=== PATIENT | female | born 1955 | race Caucasian/White ===

== ENCOUNTER 2017-02-08 15:56 | Observation (INO) | payer OTHER ==
[2017-02-08] MEDS ORDERED: Lactated Ringers 500 ML IV SCH (16:26)
[2017-02-08] MEDS ORDERED: Albuterol 0.083% 2.5 MG/3 ML Neb Soln NEB PRN (16:26)
[2017-02-08] MEDS ORDERED: Ondansetron 4 MG/2 ML SDV IV PRN (16:26)
[2017-02-08] MEDS ORDERED: Sodium Chloride 0.9% 10 ML Syringe FLUSH PRN (16:26)
[2017-02-08] MEDS ORDERED: hydrOXYzine HCl 25 MG Tab PO PRN (16:38)
[2017-02-08] MEDS: Acetaminophen 325 MG Tab PO PRN ×2 (17:59→22:24)
[2017-02-08] MEDS: Sodium Chloride 0.9% 1,000 ML IV SCH (18:05)
[2017-02-08] MEDS: Calcium Citrate/Vitamin D3 315 MG-250 Unit Tab PO SCH (18:22)
[2017-02-08] MEDS: Albuterol 0.042% 1.25 MG/3 ML Neb Soln NEB SCH (20:45)
[2017-02-08] MEDS: Oseltamivir 75 MG Cap PO SCH (20:45)
--- NOTE | 2017-02-08 22:10 | HP ---
CHIEF COMPLAINT: A 61-year-old with chief complaint of fever, weakness, and fatigue. HISTORY OF PRESENT ILLNESS: This is a 61-year-old who has felt unwell since 02/04. 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 She even worked today, but she was still ill, they sent her home and she sort of passed even driving, woke up, was going quite fast, but did not crash. She came to the clinic. She had 102 fever, was found to have influenza B. She did not have her flu shot this year. She has a cough productive of yellow sputum and she does feel short of breath with wheezing. She has no lung disease. She is a nonsmoker. She has not been able to eat or drink much due to severe sore throat. She complains of aches all over. No bad abdominal pain, just feels real achy. No vomiting. Lab work in the clinic showed sodium mildly low at 134, otherwise her white count was normal. Chest x-ray, on my review, did not show any significant infiltrates. Flor Mauro thought there may potentially be a right lower lobe infiltrate, but on exam she had rhonchi all over. ALLERGIES: None. MEDICATIONS: List includes phentermine 37.5 once daily, Voltaren 100 mg daily, repeat as needed for arthritis flares, Prilosec 20 mg b.i.d., Vistaril 25 mg 4 times a day as needed for anxiety, multivitamin twice daily, B12 500 mcg daily, potassium daily, multivitamin b.i.d., iron tabs daily, magnesium 500 daily. PAST MEDICAL HISTORY: Includes myalgias and obesity are all that is listed. Medically, she does have a past history of anxiety. PAST MEDICAL HISTORY: Includes a gastric bypass surgery back in 2009, hysterectomy with removal of the tubes and ovaries, tonsillectomy, breast biopsy. SOCIAL HISTORY: The patient is . and she live in [place]. 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 She has 1 daughter who is with her during her visit today. FAMILY HISTORY: She has a mother who had breast cancer and ovarian cancer. Father is , he did have a heart attack, he also had diabetes. Brother has mental illness and , he committed suicide. REVIEW OF SYSTEMS: General: She has felt fever. She has felt weak, fatigued. HEENT: Sore throat. Cardiac: No chest pain. Respiratory: She has had cough, shortness of breath. Abdominal: No nausea, vomiting, diarrhea, or constipation. Musculoskeletal: She has had muscle aches. Otherwise, all systems reviewed and found to be negative unless otherwise stated. PHYSICAL EXAMINATION: Vital Signs: Today in the clinic, her weight is 152 pounds, blood pressure 94/50, temp 102.1, pulse 84, O2 saturation of 90% on room air. Normal O2 sats are 97 or 100 for her. General: She is in mild distress. She is slumped over in the chair. She appears pale and fatigued. Heart: Regular rate and rhythm. S1 and S2 without murmur. Lungs: Sounds decreased throughout with inspiratory rhonchi noted and rare expiratory wheezes in both bases. She is coughing with all deep breaths. Abdomen: Positive bowel sounds. Soft. Mildly tender. Extremities: Warm and dry. No edema. HEENT: Shows her throat to be without exudates or significant redness. Mental Status: She is alert and oriented x3. ASSESSMENT AND PLAN: 1. Influenza B with out evidence of pneumonia. Her white count is normal. We will follow her chest x-ray given her shortness of breath. 2. Dehydration and weakness due to poor intake from influenza. We will give her some IV fluids. I hope this will bring her fever down. We will also give her Tylenol. 3. History of gastric bypass. We will continue her supplements. 4. Episode of basically syncope. I think this is related to her influenza illness. It happened while driving. She has been ill for almost 5 days and was trying to work. I think she just needs some rest. We will not do any other further testing at this point for that. We also gave her Tamiflu for 5 days because she is ill enough to be in the hospital. I will order some sputum cultures in case an infiltrate does come up on her repeat x-ray after hydration. If necessary, we will start her on antibiotics. 5. Thrombocytopenia we will recheck in the AM Code level 1. DVT prophylaxis not yet indicated, as I anticipate her stay to be less than 24 hours. MKA: 02/08/2017 16:51:06 MODL: 02/08/2017 22:00:38 /[id number]
[2017-02-09] MEDS: Acetaminophen 325 MG Tab PO PRN ×2 (02:02→16:39)
[2017-02-09] MEDS: Sodium Chloride 0.9% 1,000 ML IV SCH ×3 (02:03→19:20)
[2017-02-09] MEDS: Albuterol 0.042% 1.25 MG/3 ML Neb Soln NEB SCH (07:07)
[2017-02-09 07:08] LABS: CHLORIDE,CL 105 mmol/L (98-107); SODIUM,NA 143 mmol/L (136-145)
[2017-02-09] MEDS ORDERED: Omeprazole 20 MG Cap.CR PO SCH (08:00)
[2017-02-09] MEDS: Cyanocobalamin (Vitamin B12) 250 MCG Tab PO SCH (09:22)
[2017-02-09] MEDS: Calcium Citrate/Vitamin D3 315 MG-250 Unit Tab PO SCH ×2 (09:25→18:06)
[2017-02-09] MEDS: Magnesium Oxide 400 MG Tab PO SCH (09:26)
[2017-02-09] MEDS: Oseltamivir 75 MG Cap PO SCH ×2 (09:26→19:52)
[2017-02-09] MEDS: Multivitamins with Iron/Calcium/Folic Acid/Minerals Tab PO SCH ×2 (09:26→19:52)
[2017-02-09] MEDS ORDERED: [UNRECOGNIZED DRUG - REMARK] SCH (10:30)
[2017-02-09] MEDS: Albuterol 0.083% 2.5 MG/3 ML Neb Soln NEB SCH ×3 (11:05→19:53)
[2017-02-09] MEDS ORDERED: Flu Vaccine 2016-17(36Mos+)/PF 60 MCG/0.5 ML Syringe IM ONE (12:00)
[2017-02-09] MEDS ORDERED: Pneumococcal 23-Valent Conjugate Vaccine 0.5 ML Syringe IM ONE (12:30)
--- NOTE | 2017-02-09 14:00 | PN ---
Progress Note for ROCHELLE KLINE Date: 02/09/2017 Room #: VM.204 SUBJECTIVE: This is hospital day #2 on a 61-year-old admitted with influenza B. She continues to have a cough. She continues to be short of breath, but oxygen saturations are better. She was weaned off oxygen. Her fever did break during the night. She is feeling a little lightheaded. Blood pressures are running low. She has no history of hypertension. She did get an L of bolus. Otherwise, her daughter states she has been a little bit more forgetful, not able to remember everything that she said, but not overly confused. OBJECTIVE: Vital Signs: She has had a temperature this morning is 98, pulse 64, blood pressure 102/54, respiratory rate 16, and O2 of 95% on room air. Her T-max was 102.2 at 5 p.m. yesterday. Last fever was 100.5 at 10 p.m. General: She is in no acute distress. Heart: Regular rate and rhythm. S1, S2 without murmur. Lungs: Sounds show a faint inspiratory rhonchi in both bases. No wheezing. Abdomen: Positive bowel sounds. Soft and nontender. Extremities: Warm and dry. No edema. Mental Status: She is alert and orientated x3. LABORATORY DATA: Lab work today white count continues to be normal. Hemoglobin dropped slightly down to 10.3, possibly due to some hemodilution, it was 11.8 yesterday, and platelets dropped from 95 down to 76. Complete BMP panels nominal except for mildly low calcium at 7.7 and a bicarb of 34. ASSESSMENT AND PLAN: 1. Influenza B with respiratory symptoms and persisting shortness of breath and cough. X-ray does not show pneumonia. She is off antibiotics, but we are giving her oral Tamiflu. 2. Dehydration and weakness. We will continue IV fluids. 3. History of gastric bypass. She is on supplements. 4. Mild anemia, probably hemodilutional. 5. Thrombocytopenia, new. I had no previous CBCs to compare, could be due to acute illness. We will repeat it either this afternoon or tomorrow morning to see if there is any worsening. 6. Some mild slowness I thought, likely related to her acute illness. I think this is all expected. I do not think any further testing is warranted at this point. 7. Thrombocytopenia. We will continue to monitor. PLAN: At this point, the patient will continue acute under observation cares. I anticipate she may need to stay 1 more night, but will definitely be discharged with in her 48 hour observation window. She may even improve throughout the day and go home this evening. We will just have to see how things go. DVT prophylaxis was not given as I anticipated a short stay and plus with her thrombocytopenia. I do encourage her to be up and ambulatory with nursing. We will get some orthostatic vitals today as well. MKA: 02/09/2017 12:46:22 MODL: 02/09/2017 13:15:36 /[id number]
[2017-02-09] MEDS: Omeprazole 20 MG Cap.CR PO SCH (16:41)
[2017-02-09] MEDS: guaiFENesin 600 MG Tab.ER PO SCH (19:52)
[2017-02-10] MEDS: Sodium Chloride 0.9% 1,000 ML IV SCH (03:23)
[2017-02-10] MEDS: Omeprazole 20 MG Cap.CR PO SCH (06:23)
[2017-02-10] MEDS: Albuterol 0.083% 2.5 MG/3 ML Neb Soln NEB SCH ×2 (07:11→10:42)
[2017-02-10] MEDS: guaiFENesin 600 MG Tab.ER PO SCH (08:14)
[2017-02-10] MEDS: Multivitamins with Iron/Calcium/Folic Acid/Minerals Tab PO SCH (08:14)
[2017-02-10] MEDS: Oseltamivir 75 MG Cap PO SCH (08:14)
[2017-02-10] MEDS: Magnesium Oxide 400 MG Tab PO SCH (08:14)
[2017-02-10] MEDS: Calcium Citrate/Vitamin D3 315 MG-250 Unit Tab PO SCH (08:14)
[2017-02-10] MEDS: Cyanocobalamin (Vitamin B12) 250 MCG Tab PO SCH (08:14)
[2017-02-10 10:36] VITALS: BP 115/63
--- NOTE | 2017-02-11 02:06 | DISCH ---
PRIMARY DISCHARGE DIAGNOSIS: Influenza B. SECONDARY DISCHARGE DIAGNOSES: 1. Dehydration and weakness due to influenza B. 2. History of gastric bypass. 3. Thrombocytopenia new, unknown cause. 4. Mild anemia likely due to hemodilution. 5. Hypomagnesemia on replacements as an outpatient. 6. Mild hypocalcemia. REASON FOR ADMISSION: On the date of admission, this 61-year-old came into the clinic. She had tried to go to work, her temperature was a 102, she was coughing, she was short of breath. She was found to have influenza B. She had chest x-ray, which was negative for pneumonia. Repeat chest x-ray after hydration still was negative. Sputum cultures were also negative. Blood cultures were negative. She continued to spike fevers even up to 100.5 at 4 p.m. on the afternoon prior to discharge, but these were relieved with Tylenol. She was still coughing, but her cough is less productive and she was able to be weaned off oxygen and was saturating 94% on room air. She was doing better. She was feeling less lightheaded. Blood pressures had improved from the low 90s/40s to 115/62 on discharge. The patient, otherwise, had platelets that were found to be low in the 70s in the clinic. Her only real prescription medication was phentermine, this was held during her stay. Platelets were 73 on discharge. I did discuss with the patient that we will need to follow up this with a CBC in the clinic in 2 weeks. She otherwise had no bleeding problems. She has no history of asthma or smoking, but did receive nebulizers, she felt they helped, but she did not feel like she wanted to take an inhaler home and her wheezing and rhonchi had all improved by discharge. OBJECTIVE: Vital Signs: Temperature 97.6, pulse 73, blood pressure 115/62, respiratory rate 20, O2 of 92% on room air. General: She is in no acute distress. Heart: Regular rate and rhythm. S1, S2 without murmur. Lungs: Sounds are clear to auscultation bilaterally without crackles or wheezes throughout with some fine faint crackles noted in both bases. Abdomen: Positive bowel sounds. Soft and nontender. Extremities: Warm and dry. No edema. Mental Status: Alert and orientated x3. DISCHARGE PLANS/INSTRUCTIONS: She will follow up in the clinic with Flor Mauro in 2 weeks with her CBC at that time. She may alternate Tylenol and Motrin for fevers. During her hospital stay, she was only receiving Tylenol as that was working for her, but she felt she had some Motrin or Advil at home. She also did receive Mucinex 600 mg twice daily and did incentive spirometry. She also received her influenza and pneumonia shot during her stay at a point when she was not having fevers. She will complete Tamiflu for another 6 doses due to her severe illness, even though it started on 02/04/2017, I felt it was appropriate to treat her with Tamiflu. Her was also sent Tamiflu for prophylaxis. All questions answered. MKA: 02/10/2017 09:45:23 MODL: 02/11/2017 01:56:08 /[id number]
== END 2017-02-10 10:55 | disposition home or self-care (01) ==
LOC: VM.MS 16:14
PROVIDERS: ADMIT Internal Medicine; ATTEND Internal Medicine
DX: J10.1 Influenza due to other identified influenza virus with other respiratory manifestations (principal); E86.0 Dehydration; D69.6 Thrombocytopenia, unspecified; D64.9 Anemia, unspecified; E83.51 Hypocalcemia; R55 Syncope and collapse; E83.42 Hypomagnesemia; Z98.84 Bariatric surgery status; Z90.710 Acquired absence of both cervix and uterus; Z98.890 Other specified postprocedural states; Z79.899 Other long term (current) drug therapy
CPT/HCPCS: 36415; 71020; 80048; 83735; 85025; 87040; 87070; 87205; 94640; 94760; 96360; 96361; A9270; G0008; G0378; G0379; J7030; J7120; J7620; 90686; G0009